=== PATIENT | male | born 1960 | race Caucasian/White ===

== ENCOUNTER 2024-09-05 10:17 | Day surgery (SDC) | payer OTHER ==
[2024-09-05] MEDS ORDERED: CIPROFLOXACIN 400mg IV 400 MG/200 ML BAG IV ONE (10:47)
[2024-09-05] MEDS ORDERED: NA CHLORIDE 0.9% 1,000 ML ONE (10:47)
--- NOTE | 2024-09-05 10:58 | RAD REPORT ---
EXAM: Chest Pa And Lat (2 Views) HISTORY: PREPROCEDURE SCREENING COMPARISON: 09/18/2016 FINDINGS: LUNGS/PLEURA: The lungs are clear. No pleural effusions or pneumothorax. No pulmonary edema. MEDIASTINUM: The mediastinal silhouette is within normal limits. CARDIAC: Cardiomegaly. UPPER ABDOMEN: No significant abnormality. BONES: No acute fracture. Sternotomy. LINES/TUBES/OTHER: N/A IMPRESSION: No evidence of acute cardiopulmonary disease.
[2024-09-05 11:14] LABS: Absolute Eosinophils 0.1 K/uL (0-0.5); Absolute Lymphocytes (CBC) 0.6 K/uL (0.7-4.9); Absolute Monocytes 0.6 K/uL (0.1-1.3); Absolute Neutrophil 5.8 K/uL (1.8-8.0); Basophils % 0.6 % (0-1.3); Eosinophils % 1.5 % (0-4.4); Hematocrit 37.4 % (39.6-49.0); Hemoglobin 12.5 g/dL (13.6-17.9); Lymphocytes % 8.1 % (15.3-44.8); MCH 31.2 pg (27.0-35.0); MCHC 33.3 g/dL (32.0-36.0); MCV 93.5 fL (80-100); MPV 7.7 fL (7.6-11.3); Monocytes % 8.5 % (3.3-12.3); Neutrophils % 81.3 % (41.7-73.7); Platelets 211 thou/uL (152-406)
[2024-09-05] MEDS ORDERED: LIDOCAINE 1% MPF 5 ML VIAL ONE ×2 (11:22→12:16)
[2024-09-05] MEDS ORDERED: FENTANYL CITR 100 MCG/2 ML ONE (11:22)
[2024-09-05] MEDS ORDERED: MIDAZOLAM HCL 2 MG/2 ML INJ ONE (11:23)
[2024-09-05] MEDS ORDERED: dexAMETHasone 4 MG/ML VIAL ONE (11:23)
[2024-09-05] MEDS ORDERED: EPINEPHRINE 1 MG/ML VIAL ONE (11:23)
[2024-09-05 11:24] LABS: Anion Gap 9.1 mEq/L (5.0-15.0); Potassium 4.1 mEq/L (3.5-5.1)
[2024-09-05] MEDS ORDERED: ROPLVACAINE HCL 20 ML ONE (11:24)
[2024-09-05] MEDS ORDERED: propofoL 200 MG/20 ML VIAL IV ONE (12:16)
[2024-09-05] MEDS ORDERED: EPHEDRINE SULF 50 MG/ML VIAL ONE (12:46)
--- NOTE | 2024-09-05 13:03 | P.BOP ---
Preoperative diagnosis: infected gangrene left 5th toe Postoperative diagnosis: same Primary procedure: Transmetatarsal amputation of left 5th toe Estimated blood loss: <1cc Specimen: toe Findings: as above Anesthesia: General Complications: None Transferred to: Recovery Room Condition: Good
[2024-09-05] MEDS: MORPHINE 4 MG/ML SYR ONE (13:26)
[2024-09-05] MEDS: HYDROCODONE/APAP 7.5/325 MG TAB ONE (14:17)
[2024-09-05 15:24] VITALS: BP 164/63; TEMP 97; O2SAT 97
--- NOTE | 2024-09-05 23:55 | OP ---
Date of Procedure: 09/05/2024 Surgeon: Heriberto Machado MD Preoperative Diagnosis: Infected gangrenous left fifth toe. Postoperative Diagnosis: Infected gangrenous left fifth toe. Procedure: Transmetatarsal amputation of the left fifth toe. Estimated Blood Loss: Less than 1 cc. Specimens: Toe. Findings: Gangrene toe with fluid. Anesthesia: General plus local. Packing: Iodoform quarter of an inch. Indications: This is a case of a male, who comes to us with gangrene in the left fifth toe. Cardiol tomas finally cleared him for the surgical intervention and it was explained to him as amputation of th e left fifth toe, probably transmetatarsal of that region only with benefits, alternatives, and risks including, but not limited to infection, bleeding, damage to adjacent structures, anesthesia complic ation, nonhealing wound, DC, and even . He also understands this may not relieve his symptoms. He might need more than one surgical intervention. He also understands its importance and imperativ e he lose some weight. He follows his doctor's recommendation, following with his vascular doctors f or evaluation of revascularization if needed. He signed the consent. Procedure In Detail: The area of concern was marked by me and the patient was in the holding room. The patient was brought to the operating room and placed in supine position. Anesthesia was induced without complication. Left foot was prepped and draped in sterile fashion. The patient has block of that region. This was done by anesthesia. An incision was made in the left fifth toe area. The ar ea was gangrenous. We were able to localize the area on the fifth metatarsal region that it looks vi able, so we transected through that region removing also the metatarsal head with it. The bone was j ust falling apart, so we decided to irrigate the area at the end of it and leave the area partially o pen. We approximated partially and then packed the rest with iodoform quarter of an inch. Hemostasi s was obtained. The patient tolerated the procedure well. The patient was sent to recovery in stabl e condition. RADHA/MODL Voice ID: [id number] Report ID: [id number]
--- NOTE | 2024-09-05 23:55 | DS ---
Date of Discharge: 09/05/2024 Diagnosis: Infected gangrenous left fifth toe. Procedure: Transmetatarsal amputation of left fifth toe. Disposition: Home. Activity: As tolerated. No heavy lifting. Discharge Instructions: [facility] this Thursday at 9:30 in the morning. Keep dressings intact until seen in the next 48 hours. Condition: Stable. RADHA/SUE Voice ID: [id number] Report ID: [id number]
--- NOTE | 2024-09-06 11:58 | EKG ---
Test Date: 2024-09-05 Test Time: 12:43:09 [employer] Selector: MEASUREMENT RESULTS: Intervals: Rate: 78 NE: 238 QRSD: 100 QT: 402 QTc: 458 [place]: P: 107 NE: 238 QRS: 73 T: 226 INTERPRETIVE STATEMENTS: Sinus rhythm with 1st degree AV block Possible Inferior infarct, age undetermined Possible Anterior infarct, age undetermined ST & T wave abnormality, consider lateral ischemia Abnormal ECG Compared to ECG 09/19/2016 07:15:46 First degree AV block now present Myocardial infarct finding still present ST (T wave) deviation still present Possible ischemia still present Electronically Signed On 09-06-24 11:56:25 HEALTHCARE APPLICATIONS ANALYST by Varghese Yan
== END 2024-09-05 15:05 | disposition home or self-care (01) ==
LOC: OR 10:17
PROVIDERS: ATTEND Surgery
PROC: 0Y6N0ZF Detachment at Left Foot, Partial 5th Ray, Open Approach (ICD-10-PCS; principal; 2024-09-05 14:15)
DX: E11.621 Type 2 diabetes mellitus with foot ulcer (principal); I96 Gangrene, not elsewhere classified
CPT/HCPCS: 28810; 85025; 80048; 36415; 88305; 88311; 71046; J2704; J1100; J2003 ×2; J2250; J3010; J0171; J0744; J7030; 93005

== ENCOUNTER 2024-09-07 08:08 | Inpatient (IN) | payer OTHER ==
[2024-09-07] MEDS ORDERED: LEVALBUTEROL 1.25 MG/3 ML NEB ONE (08:24)
[2024-09-07 08:39] LABS: Absolute Basophils 0.1 K/uL (0-0.5); Absolute Eosinophils 0.2 K/uL (0-0.5); Absolute Lymphocytes (CBC) 1.4 K/uL (0.7-4.9); Absolute Monocytes 0.8 K/uL (0.1-1.3); Absolute Neutrophil 7.8 K/uL (1.8-8.0); Basophils % 0.6 % (0-1.3); Eosinophils % 2.3 % (0-4.4); Hematocrit 37.9 % (39.6-49.0); Hemoglobin 12.9 g/dL (13.6-17.9); Lymphocytes % 13.6 % (15.3-44.8); MCH 31.7 pg (27.0-35.0); MCV 93.3 fL (80-100); MPV 7.7 fL (7.6-11.3); Monocytes % 7.4 % (3.3-12.3); Neutrophils % 76.1 % (41.7-73.7); Platelets 241 thou/uL (152-406); RBC Red Blood Cell Count 4.07 M/uL (4.33-5.43); Red Cell Distribution Width 16.4 % (12.1-15.2)
[2024-09-07 08:48] LABS: PT Prothrombin Time 10.8 SECONDS (9.4-12.5); PTT, Activated Partial Thromb 29.2 SECONDS (24.3-36.9); Protime INR 0.96
[2024-09-07 09:00] LABS: Albumin 3.6 g/dL (3.4-5.0); Albumin/Globulin Ratio 0.9 (1.1-1.8); Bilirubin Direct 0.3 mg/dL (0-0.2); Bilirubin Indirect, Calculated 0.7 mg/dL (0.2-0.8); Globulin 4.2 g/dL (2.3-3.5); Magnesium 1.7 mg/dL (1.6-2.4); Protein, Total 7.8 g/dL (6.4-8.2)
[2024-09-07 09:01] LABS: Troponin High Sensitivity 445.8 pg/mL (<58.9)
--- NOTE | 2024-09-07 09:31 | RAD REPORT ---
EXAMINATION: ONE VIEW CHEST XR CLINICAL INDICATION: DYSPNEA TECHNIQUE: Frontal chest projection is submitted. Examination is limited by patient positioning and t echnique. COMPARISON: 09/05/2024 FINDINGS: Mild to moderate pulmonary edema. The heart is moderately enlarged. No displaced fractures identified . Sternotomy wires present. IMPRESSION: [id number] CHF versus volume overload pattern.
--- NOTE | 2024-09-07 09:42 | ER ---
Nurse's Notes [facility] Name: Matthew Leyva Age: 64 yrs Sex: Male : 1960 Arrival Date: 09/07/2024 Time: 08:08 Bed 5 Private MD: Diagnosis: Unspecified combined systolic (congestive) and diastolic (congestive) heart failure;Acute pulmonary edema;Dyspnea, unspecified Presentation: 09/07 08:15 Chief complaint: Patient states: was at wound healing and became SOB and dizzy , feels iw sleepy, had amputation of pinky toe on Thursday. Coronavirus screen: Client presents with at least one sign or symptom that may indicate coronavirus-19. Ebola Screen: No symptoms or risks identified at this time. Initial Sepsis Screen: Does the patient meet any 2 criteria? No. Patient's initial sepsis screen is negative. Does the patient have a suspected source of infection? No. Patient's initial sepsis screen is negative. Risk Assessment: Do you want to hurt yourself or someone else? Patient reports no desire to harm self or others. Onset of symptoms was September 07, 2024. 08:15 Method Of Arrival: Ambulatory iw 08:15 Acuity: GIANLUCA 3 iw Triage Assessment: 08:33 Respiratory: Onset: The symptoms/episode began/occurred this morning, the patient has ap3 moderate shortness of breath. Historical: - Allergies: 08:33 NKA; ap3 - PMHx: 08:33 Diabetes - NIDDM; Hypertension; ap3 - Immunization history:: Flu vaccine status is unknown. - Infectious Disease History:: Denies. - Family history:: not pertinent. - Hospitalizations: : No recent hospitalization is reported. - Social history:: Smoking status: unknown. Screenin:27 Abuse screen: Denies threats or abuse. Denies injuries from another. Nutritional kc6 screening: No deficits noted. Tuberculosis screening: No symptoms or risk factors identified. 08:33 [facility] ED Fall Risk Assessment (Adult) Altered Elimination. ap3 13:30 [facility] ED Fall Risk Assessment (Adult) History of falling in the last 3 months, tm6 including since admission No falls in past 3 months (0 pts) Confusion or Disorientation No (0 pts) Intoxicated or Sedated No (0 pts) Impaired Gait No (0 pts) Mobility Assist Device Used No (0 pt) Altered Elimination No (0 pt) Score/Fall Risk Level 0 - 2 = Low Risk Oriented to surroundings, Maintained a safe environment, Educated pt \T\ family on fall prevention, incl call for assistance when getting out of bed. Assessment: 08:31 General: Appears in no apparent distress. Behavior is calm, cooperative, appropriate ap3 for age, Reports fatigue for. Pain: Denies pain. Neuro: Reports dizziness. Cardiovascular: Patient's skin is warm and dry. Cardiovascular: Rhythm is regular. Respiratory: Reports shortness of breath Airway is patent Respiratory effort is even, unlabored. Derm: dressing on left foot from recent amputation. 13:30 Respiratory: tm6 Vital Signs: 08:15 BP 162 / 70; Resp 18 S; iw 08:25 Pulse Ox 88% on R/A; ap3 08:27 BP 166 / 76; Pulse 74; Resp 16 S; Pulse Ox 97% on 2 lpm NC; kc6 09:18 BP 154 / 67; Pulse 73; Pulse Ox 96% on R/A; ap3 12:16 Weight 87.54 kg; tm6 12:32 BP 142 / 60; Pulse 72; Resp 18; Pulse Ox 96% on 2 lpm NC; MAP 80 mmHg; Pain 0/10; tm6 12:32 Pain Scale: Adult tm6 ED Course: 08:09 Patient arrived in ED. im 08:10 Steven Luu MD is Attending Physician. rn 08:18 Triage completed. iw 08:22 Joanne Pelayo, SHARIF is Primary Nurse. ap3 08:22 EKG done, by ED staff, reviewed by Steven Luu MD. Oxygen administration via nasal ap3 cannula \T\ 2L/min. 08:26 Inserted saline lock: 22 gauge in right antecubital area, using aseptic technique. kc6 Blood collected. Flushed with 10 mL NS. 08:27 Patient has correct armband on for positive identification. Bed in low position. Call kc6 light in reach. Side rails up X2. aniline press worker on. Pulse ox on. NIBP on. Door closed. Noise minimized. Lights dimmed. Pillow given. 08:33 Arm band placed on right wrist. ap3 08:46 XRAY CXR (1 view) In Process Unspecified. EDMS 09:41 Haris Luu MD is Hospitalizing Provider. rn 10:53 Chest For PE Angio CT In Process Unspecified. EDMS 13:30 No provider procedures requiring assistance completed. Patient admitted, IV remains in tm6 place. 13:31 Provided Education on: need for admit. tm6 Administered Medications: 08:31 Drug: Levalbuterol Inhalation 1.25 mg Inhalation once Route: Inhalation; ap3 13:32 Follow up: Response: No adverse reaction tm6 10:10 Drug: Furosemide IVP 40 mg IVP once; give over 2 minutes Route: IVP; Site: right ap3 antecubital; 13:32 Follow up: Response: No adverse reaction tm6 10:10 Drug: HYDROcodone-acetaminophen PO 10 mg-325 mg 1 tabs PO once Route: PO; ap3 13:31 Follow up: Response: No adverse reaction tm6 12:24 Drug: Enoxaparin Sub-Q 1 mg/kg Sub-Q once Route: Sub-Q; Site: left lower abdomen; tm6 13:31 Follow up: Response: No adverse reaction tm6 Medication: 08:33 VIS not applicable for this client. ap3 Output: 12:10 Urine: 700ml (Voided); Total: 700ml. iw Outcome: 09:41 Decision to Hospitalize by Provider. rn 13:31 Admitted to Med/surg accompanied by tech, via wheelchair, with oxygen, with chart, tm6 13:31 Condition: stable 13:31 Instructed on the need for admit, 13:31 Patient left the ED. tm6 Signatures: Dispatcher [employer] Bambi Geiger RN RN iw Steven Luu MD MD rn Prokisch, Amanda, RN RN ap3 Sondra Yen RN RN 6 Tabitha Stewart Tawney, RN RN tm6
--- NOTE | 2024-09-07 09:42 | EDPHYS ---
Physician Documentation [facility] Name: Matthew Leyva Age: 64 yrs Sex: Male : 1960 Arrival Date: 09/07/2024 Time: 08:08 Bed 5 Private MD: ED Physician Steven Luu HPI: 09/07 09:12 This 64 yrs old Male presents to ER via Ambulatory with complaints of Shortness Of rn Breath, Dizziness. 09:12 The patient has shortness of breath at rest, with light activity. Onset: The rn symptoms/episode began/occurred at an unknown time. Associated signs and symptoms: Pertinent positives: non-productive cough, Pertinent negatives: chest pain, fever, hemoptysis. Severity of symptoms: At their worst the symptoms were moderate in the emergency department the symptoms are unchanged. The patient has not experienced similar symptoms in the past. Patient reports shortness of breath for the last couple days, orthopnea for the last week, sent here from wound care for evaluation. Patient denies any chest pain. No fever or chills. Has a productive cough but negative for hemoptysis. No history of DVT or PE. No trauma.. Historical: - Allergies: 08:33 NKA; ap3 - PMHx: 08:33 Diabetes - NIDDM; Hypertension; ap3 - Immunization history:: Flu vaccine status is unknown. - Infectious Disease History:: Denies. - Family history:: not pertinent. - Hospitalizations: : No recent hospitalization is reported. - Social history:: Smoking status: unknown. ROS: 09:12 Constitutional: Negative for fever, chills, and weight loss, Cardiovascular: Negative rn for chest pain, palpitations, and edema, Respiratory: Positive for cough and shortness of breath Abdomen/GI: Negative for abdominal pain, nausea, vomiting, diarrhea, and constipation, MS/Extremity: Negative for injury and deformity, Skin: Negative for injury, rash, and discoloration, Neuro: Positive for generalized weakness and dizziness Exam: 09:12 Constitutional: This is a well developed, well nourished patient who is awake, alert, rn and in no acute distress. Cardiovascular: Regular rate and rhythm. No pulse deficits. Respiratory: Moderate tachypnea, diminished at bases, occasional wheezing noted Abdomen/GI: Soft, non-tender MS/ Extremity: Pulses equal, no cyanosis. Neurovascular intact. Full, normal range of motion. Equal circumference. Neuro: Awake and alert, GCS 15 11:32 ECG was reviewed by the Attending Physician. rn Vital Signs: 08:15 BP 162 / 70; Resp 18 S; iw 08:25 Pulse Ox 88% on R/A; ap3 08:27 BP 166 / 76; Pulse 74; Resp 16 S; Pulse Ox 97% on 2 lpm NC; kc6 09:18 BP 154 / 67; Pulse 73; Pulse Ox 96% on R/A; ap3 12:16 Weight 87.54 kg; tm6 12:32 BP 142 / 60; Pulse 72; Resp 18; Pulse Ox 96% on 2 lpm NC; MAP 80 mmHg; Pain 0/10; tm6 12:32 Pain Scale: Adult tm6 MDM: 08:10 Medical Screening Exam initiated rn 09:40 Differential diagnosis: CHF exacerbation, Chronic Obstructive Pulmonary Disease rn Myocardial Infarction pneumonia, Pneumothorax pulmonary edema. Data reviewed: vital signs, nurses notes, lab test result(s), EKG, radiologic studies, plain films, and as a result, I will admit patient. Consideration of Admission/Observation Patient was admitted/placed on observation. Escalation of care including admission/observation considered. Counseling: I had a detailed discussion with the patient and/or guardian regarding the historical points, exam findings, and any diagnostic results supporting the discharge/admit diagnosis, lab results, radiology results, the need for further work-up and treatment in the hospital. Response to treatment: the patient's symptoms have markedly improved after treatment, and as a result, I will admit patient. Special discussion: I discussed with the patient/guardian in detail that at this point there is no indication for admission to the hospital. It is understood, however, that if the symptoms persist or worsen the patient needs to return immediately for re-evaluation. 09/07 08:18 Order name: BMP; Complete Time: : rn 09/07 08:18 Order name: CBC with Diff; Complete Time: : rn 09/07 08:18 Order name: Hepatic Function; Complete Time: : rn 09/07 08:18 Order name: Magnesium; Complete Time: : rn 09/07 08:18 Order name: NT PRO-BNP; Complete Time: : rn 09/07 08:18 Order name: PT-INR; Complete Time: : rn 09/07 08:18 Order name: Ptt, Activated; Complete Time: 09: rn 09/07 08:18 Order name: Troponin HS; Complete Time: 09: rn 09/07 11:31 Order name: Troponin High Sensitivity EDMS 09/07 11:31 Order name: Troponin High Sensitivity EDMS 09/07 11:31 Order name: Troponin High Sensitivity EDMS 09/07 08:18 Order name: XRAY CXR (1 view); Complete Time: 09:35 rn 09/07 10:27 Order name: Chest For PE Angio CT; Complete Time: 11:26 la1 09/07 11:31 Order name: Echo with Doppler EDMS 09/07 08:18 Order name: Cardiac monitoring; Complete Time: 08: rn 09/07 08:18 Order name: EKG - Nurse/Tech; Complete Time: 08: rn 09/07 08:18 Order name: IV Saline Lock; Complete Time: 08: rn 09/07 08:18 Order name: Labs collected and sent; Complete Time: : rn 09/07 08:18 Order name: O2 Per Protocol; Complete Time: 08: rn 09/07 08:18 Order name: O2 Sat Monitoring; Complete Time: 08:23 rn EC:32 Rate is 78 beats/min. Rhythm is regular. QRS [place] is Normal. AL interval is normal. QRS rn interval is normal. QT interval is normal. No Q waves. T waves are Inverted in leads I, II, III, aVF, V5, V6. No ST changes noted. Clinical impression: NSR w/ Non-specific ST/T Changes. Interpreted by me. Reviewed by me. Administered Medications: 08:31 Drug: Levalbuterol Inhalation 1.25 mg Inhalation once Route: Inhalation; ap3 13:32 Follow up: Response: No adverse reaction tm6 10:10 Drug: Furosemide IVP 40 mg IVP once; give over 2 minutes Route: IVP; Site: right ap3 antecubital; 13:32 Follow up: Response: No adverse reaction tm6 10:10 Drug: HYDROcodone-acetaminophen PO 10 mg-325 mg 1 tabs PO once Route: PO; ap3 13:31 Follow up: Response: No adverse reaction tm6 12:24 Drug: Enoxaparin Sub-Q 1 mg/kg Sub-Q once Route: Sub-Q; Site: left lower abdomen; tm6 13:31 Follow up: Response: No adverse reaction tm6 Disposition Summary: 09/07/24 09:41 Hospitalization Ordered Notes: Hospitalization Status: Inpatient Admission rn Provider: Haris Luu rn Location: Telemetry/MedSurg (Inpatient) rn Condition: Stable rn Problem: new rn Symptoms: have improved rn Bed/Room Type: Standard rn Room Assignment: 220(09/07/24 11:37) ss Diagnosis - Unspecified combined systolic (congestive) and diastolic (congestive) heart failure rn - Acute pulmonary edema rn - Dyspnea, unspecified rn Forms: - Medication Reconciliation Form rn - SBAR form rn - Leadership Thank You Letter rn Signatures: Dispatcher [employer] EDMS Steven Luu MD MD rn Blanchard, Shelby, RN RN ss Aden Magaña, DETASSELING CREW SUPERVISOR-C DETASSELING CREW SUPERVISOR-Cla1 Joanne Pelayo RN RN ap3 Deshaun Abernathy RN RN tm6 Corrections: (The following items were deleted from the chart) 08:19 08:19 BASIC METABOLIC PANEL+C.LAB.BRZ ordered. EDMS EDMS 08:19 08:19 CBC+H.LAB.BRZ ordered. EDMS EDMS 08:19 08:19 HEPATIC FUNCTION+C.LAB.BRZ ordered. EDMS EDMS 08:19 08:19 MAGNESIUM+C.LAB.BRZ ordered. EDMS EDMS 08:19 08:19 PROBNP+C.LAB.BRZ ordered. EDMS EDMS 08:19 08:19 PROTIME (+INR)+COAG.LAB.BRZ ordered. EDMS EDMS 08:19 08:19 PTT, ACTIVATED+COAG.LAB.BRZ ordered. EDMS EDMS 08:19 08:19 Troponin High Sensitivity+C.LAB.BRZ ordered. EDMS EDMS 08:19 08:19 Chest Single View+RAD.RAD.BRZ ordered. EDMS EDMS 11:37 09:41 rn ss
[2024-09-07] MEDS ORDERED: HYDROCODONE/APAP 10/325 TAB ONE (09:55)
[2024-09-07] MEDS ORDERED: FUROSEMIDE 40 MG/4 ML VIAL ONE (09:56)
--- NOTE | 2024-09-07 11:17 | RAD REPORT ---
EXAMINATION: CTA CHEST PE CLINICAL INDICATION: GONZALEZ, Recent surgery, hypoxia, elev trop TECHNIQUE: This examination was performed according to an angiographic protocol with 3D post-processi ng. This involves 3D reconstructions, MIPs, volume rendered images and/or shaded surface rendering. One or more of the following dose reduction techniques were used: Automated exposure control, adjustm ent of the mA and/or kV according to patient size, and/or iterative reconstruction. Unless otherwise specified, incidental findings do not require dedicated imaging follow-up. COMPARISON: No prior exam. FINDINGS: PULMONARY ARTERIES: Normal caliber. No evidence of pulmonary emboli to the subsegmental level. THORACIC AORTA: Normal caliber and configuration. LUNGS: Mild interstitial pulmonary edema is present. PLEURA: Trace pleural effusions bilaterally. MEDIASTINUM AND LYMPH NODES: Mildly prominent mediastinal lymph nodes seen, largest in the AP window region measuring up to 14 mm, possibly reactive. OSSEOUS STRUCTURES AND CHEST WALL: Intact. UPPER ABDOMEN: No significant abnormalities. IMPRESSION: No evidence of pulmonary emboli to the subsegmental level. Mild CHF or volume overload.
--- NOTE | 2024-09-07 11:37 | P.HP ---
Certification for Inpatient Patient admitted to: Inpatient With expected LOS: >2 Midnights Patient will require the following post-hospital care: None Practitioner: I am a practitioner with admitting privileges, knowledge of patient current condition, hospital course, and medical plan of care. Services: Services provided to patient in accordance with Admission requirements found in Title 42 Section 412.3 of the Code of Federal Regulations Patient History Date of Service: 09/07/24 Reason for admission: NSTEMI, new CHF History of Present Illness: 64-year-old male with history of PAD, CAD with previous CABG four-vessel CABG in 2005, fse-uzzsgck-ljyywyuzf diabetes, hypertension presents emerged department with chief complaint of dyspnea on exertion, lightheadedness. He had a recent amputation of his left pinky toe on Thursday the , had come to the hospital for wound healing center evaluation but became short of breath while walking in and came to the emergency department. He reports that prior to his toe amputation he was seen by his sales and marketing professional and underwent a stress test and echocardiogram last week with his sales and marketing professional and [place]. He was told that he was "high risk for surgery" but he is unsure of the results from the echo and stress test. He had a four-vessel CABG in 2005 and his most recent heart cath was probably around 3 years ago with no stents placed. He denies any chest pain. Labs were significant for initial high sensitive troponin of 445.8 BNP of 2703 sodium 125 chloride 93 CTA of the chest was performed which showed no evidence of PE, mild CHF or volume overload pattern. He is requiring nasal cannula oxygen at this time, does not wear oxygen at home typically. Allergies No Known Allergies Allergy (Verified 09/05/24 12:36) Home Medications: Amlodipine [Norvasc*] 10 mg PO DAILY #30 tab 10/10/15 Hydralazine [Apresoline*] 50 mg PO TID #90 tab 10/12/15 Topiramate [Topamax*] 25 mg PO BID #60 tab 10/12/15 Metformin HCl [Metformin HCl ER] 750 mg PO DAILY 09/18/16 Metoprolol Tartrate [Lopressor*] 200 mg PO BID 09/18/16 Simvastatin 40 mg PO DAILY 09/18/16 Valsartan [Diovan] 320 mg PO DAILY 09/18/16 Doxazosin [Cardura*] 1 mg PO BEDTIME #30 tab 09/19/16 Topiramate [Topamax] 25 mg PO BID #28 tab 09/19/16 - Past Medical/Surgical History Diabetic: Yes -: HTN -: Diabetes -: appendectomy -: quadruple bypass -: stent left leg -: 3 vessel CABG -: Left pinky toe amputation Psychosocial/ Personal History: Lives at home alone, recently - Family History Mother -: Stroke Notes: of coronary artery disease - Social History Smoking Status: Current every day smoker Alcohol use: Yes CD- Drugs: No Caffeine use: Yes Place of Residence: Home Review of Systems 10-point ROS is otherwise unremarkable Respiratory: Shortness of Breath, SOB with Excertion Physical Examination - Physical Exam General: Alert, In no apparent distress, Oriented x3 HEENT: Atraumatic, PERRLA, Mucous membr. moist/pink, EOMI Neck: Supple, 2+ carotid pulse no bruit, No LAD Respiratory: Normal air movement, Diminished Cardiovascular: Regular rate/rhythm, Normal S1 S2 Gastrointestinal: Normal bowel sounds, No tenderness Musculoskeletal: No tenderness Integumentary: No rashes Neurological: Normal speech, Normal strength at 5/5 x4 extr, Normal tone - Studies Laboratory Data (last 24 hrs) 09/07/24 09/07/24 09/07/24 08:28 08:28 08:28 WBC 10.30 Hgb 12.9 L Hct 37.9 L Plt Count 241 PT 10.8 INR 0.96 APTT 29.2 Sodium 125 L Potassium 4.0 BUN 9 Creatinine 0.63 L Glucose 131 H Magnesium 1.7 Total Bilirubin 1.0 AST 19 ALT 17 Alkaline Phosphatase 82 Assessment and Plan - Plan Assessment: NSTEMI Suspected new onset CHFunknown EF Hyponatremia History of CAD with previous four-vessel [id number] PAD Diabetes mellitus type [id number] Hypertension Plan: NSTEMI Suspected new onset CHFunknown EF Hyponatremia History of CAD with previous four-vessel [id number] Reports he had a stress test and echo last week with his sales and marketing professional in [place] Dr. Rajput-was told he was high risk for surgery CTA of the chest negative for PE, shows suspected normal overload/CHF Given therapeutic Lovenox Continue diuresis with IV Lasix Cardiology consulted, will repeat echocardiogram Last catheter on 3 years ago with no intervention Denies chest pain Wean O2 as tolerated PAD Planning for intervention to PAD in his legs after the new year outpatient Diabetes mellitus type 1fje-bgnlztq-uprwidchf ACHS Accu-Chek, sliding scale insulin Hypertension Continue home medication DVT PPX: Therapeutic Lovenox Code status: Full Discharge Plan: Home Plan to discharge in: 48 Hours - Advance Directives Does patient have a Living Will: No Does patient have a Durable POA for Healthcare: No - Code Status/Comfort Care Code Status Assessed: Yes (Full code) Critical Care: No Time Spent Managing Pts Care (In Minutes): 63
[2024-09-07] MEDS ORDERED: ENOXAPARIN 80 MG/0.8 ML SQ ONE (12:21)
[2024-09-07 14:30] VITALS: BMI 29.4
[2024-09-07] MEDS ORDERED: HYDROCODONE/APAP 10/325 TAB PO PRN (14:47)
[2024-09-07 15:01] VITALS: O2SAT 97
[2024-09-07] MEDS: HYDROCODONE/APAP 10/325 TAB PO PRN (15:52)
[2024-09-07] MEDS: NICOTINE 21 MG/PAT TD SCH (15:53)
[2024-09-07] MEDS: FUROSEMIDE 40 MG/4 ML VIAL IV SCH (15:53)
--- NOTE | 2024-09-07 16:27 | P.CNS ---
Date of Consult: 09/07/24 Chief Complaint: NSTEMI, new CHF History of Present Illness: Patient with PMH of complex CAD/PAD s/p CABG, presented with worsening SOB, denies having chest pain, no palpitations, no syncope. Allergies No Known Allergies Allergy (Verified 09/05/24 12:36) Home medications list reviewed: Yes Home Medications: Metformin HCl [Metformin HCl ER] 1,000 mg PO BID 09/18/16 Metoprolol Tartrate [Lopressor*] 200 mg PO BID 09/18/16 Simvastatin 40 mg PO DAILY 09/18/16 Amlodipine [Norvasc*] 5 mg PO DAILY 09/07/24 Bupropion HCl [Wellbutrin Sr] 150 mg PO DAILY 09/07/24 Clopidogrel Bisulfate [Clopidogrel] 75 mg PO DAILY 09/07/24 Gabapentin [Neurontin] 100 mg PO DAILY 09/07/24 Hydralazine [Apresoline*] 75 mg PO BID 09/07/24 Hydrocodone Bit/Acetaminophen [Hydrocodon-Acetaminophn 10-325] 10 mg PO Q4HR PRN 09/07/24 lisinopriL [Lisinopril] 20 mg PO DAILY 09/07/24 - Past Medical/Surgical History Diabetic: Yes -: HTN -: Diabetes -: appendectomy -: quadruple bypass -: stent left leg -: 3 vessel CABG -: Left pinky toe amputation Psychosocial/ Personal History: Lives at home alone, recently - Family History Mother Medical History: Stroke Notes: of coronary artery disease - Social History Smoking Status: Unknown if ever smoked Alcohol use: Yes CD- Drugs: No Caffeine use: No Place of Residence: Home Review of Systems 10-point ROS is otherwise unremarkable Physical Examination Temp Pulse Resp BP Pulse Ox 98.7 F 77 18 178/76 H 91 09/07/24 16:00 09/07/24 16:00 09/07/24 16:00 09/07/24 16:00 09/07/24 16:00 General: Alert, In no apparent distress HEENT: Atraumatic, PERRLA, Mucous membr. moist/pink, EOMI, Sclerae nonicteric Neck: Supple, 2+ carotid pulse no bruit, No LAD, Without JVD or thyroid abnormality Respiratory: Clear to auscultation bilaterally, Normal air movement Cardiovascular: Regular rate/rhythm, Normal S1 S2 Gastrointestinal: Normal bowel sounds, No tenderness Musculoskeletal: No tenderness Integumentary: No rashes Neurological: Normal gait, Normal speech, Normal tone, Normal affect Lymphatics: No axilla or inguinal lymphadenopathy Laboratory Data (last 24 hrs) 09/07/24 09/07/24 09/07/24 08:28 08:28 08:28 WBC 10.30 Hgb 12.9 L Hct 37.9 L Plt Count 241 PT 10.8 INR 0.96 APTT 29.2 Sodium 125 L Potassium 4.0 BUN 9 Creatinine 0.63 L Glucose 131 H Magnesium 1.7 Total Bilirubin 1.0 AST 19 ALT 17 Alkaline Phosphatase 82 - Problems (1) NSTEMI (non-ST elevated myocardial infarction) Current Visit: Yes Status: Acute Plan: Patient with PMH of Complex CAD s/p CABG with only patent SOLOMON to LAD and calcified coronary artery disease else where, he follow up with boat ride operator, Dr. Rajput and no plan for intervention. denies chest pain. most likely type 2 NV from recent leg surgery continue ASA and Plavix continue ACS heparin for 48 hours. continue to trend cardiac enzymes. (2) Acute on chronic combined systolic and diastolic heart failure Current Visit: Yes Status: Acute Plan: agree with Lasix 40 mg IV BID Monitor input and output and electrolytes.
[2024-09-07] MEDS: ENOXAPARIN 100 MG/ML SYR SQ SCH (20:37)
[2024-09-07] MEDS: BUPROPRION HCL S.R. 150MG TAB PO SCH (21:00)
[2024-09-07] MEDS ORDERED: METOPROLOL XL 100 MG TAB PO SCH (21:00)
[2024-09-07] MEDS: HYDRALAZINE HCL 25 MG TABLET PO SCH (21:00)
[2024-09-07] MEDS ORDERED: ATORVASTATIN 40 MG TAB PO SCH (21:00)
[2024-09-07] MEDS ORDERED: HYDRALAZINE HCL 25 MG TABLET PO SCH (21:00)
[2024-09-07] MEDS: ROSUVASTATIN 10 MG TAB PO SCH (21:00)
[2024-09-08 00:50] VITALS: TEMP 97.7
[2024-09-08] MEDS ORDERED: METOPROLOL XL 100 MG TAB PO SCH (06:00)
[2024-09-08 06:21] VITALS: BP 166/70
[2024-09-08] MEDS: GABAPENTIN 100 MG CAP PO SCH (08:41)
[2024-09-08] MEDS: ASPIRIN EC 81 MG TAB PO SCH (08:41)
[2024-09-08] MEDS: lisinopriL 20 MG TAB PO SCH (08:42)
[2024-09-08] MEDS: CLOPIDOGREL 75 MG TABLET PO SCH (08:42)
[2024-09-08] MEDS: AMLODIPINE 5 MG TAB PO SCH (08:42)
--- NOTE | 2024-09-08 09:46 | P.PN ---
Subjective Date of Service: 09/08/24 Chief Complaint: NSTEMI, new CHF Subjective: No new changes, No C/O voiced, Tolerating diet, Ambulating, Improving Review of Systems 10-point ROS is otherwise unremarkable Physical Examination - Vital Signs Temperature: 97.7 F Blood Pressure: 166/70 Pulse: 67 Respirations: 18 Pulse Ox (%): 94 - Physical Exam General: Alert, In no apparent distress HEENT: Atraumatic, PERRLA, EOMI Neck: Supple, JVD not distended Respiratory: Clear to auscultation bilaterally, Normal air movement Cardiovascular: Regular rate/rhythm, Normal S1 S2 Gastrointestinal: Normal bowel sounds, No tenderness Musculoskeletal: No tenderness Integumentary: No rashes Neurological: Normal speech, Normal tone, Normal affect Lymphatics: No axilla or inguinal lymphadenopathy - Studies Medications List Reviewed: Yes Assessment And Plan - Current Problems (Diagnosis) (1) NSTEMI (non-ST elevated myocardial infarction) Current Visit: Yes Status: Acute Plan: Patient with PMH of Complex CAD s/p CABG with only patent SOLOMON to LAD and calcified coronary artery disease else where, he follow up with mill hand plate mill, Dr. Rajput and no plan for intervention. denies chest pain. most likely type 2 [place] from recent leg surgery continue ASA and Plavix. (2) Acute on chronic combined systolic and diastolic heart failure Current Visit: Yes Status: Acute Plan: switch lasix to 40 mg po daily continue lisinopril 20 mg daily switch lopressor to coreg 12.5 mg po BID on discharge. resume home dose hydralazine on discharge. Monitor input and output and electrolytes.
--- NOTE | 2024-09-08 11:28 | EKG ---
Test Date: 2024-09-07 Test Time: 08:20:10 Frozen Yogurt Maker: ALP MEASUREMENT RESULTS: Intervals: Rate: 78 [place]: 190 QRSD: 94 QT: 416 QTc: 474 [place]: P: 89 [place]: 190 QRS: 84 T: 231 INTERPRETIVE STATEMENTS: Normal sinus rhythm Inferior infarct, age undetermined Cannot rule out Anterior infarct, age undetermined ST & T wave abnormality, consider lateral ischemia Abnormal ECG Compared to ECG 09/05/2024 12:43:09 First degree AV block no longer present Myocardial infarct finding still present ST (T wave) deviation still present Possible ischemia still present Electronically Signed On 09-08-24 11:27:30 SOCKET PULLER by Varghese Yan
--- NOTE | 2024-09-08 11:53 | P.DS ---
Admission Date: 09/07/24 Discharge Date: 09/08/24 Disposition: ROUTINE DISCHARGE Discharge Condition: GOOD Reason for Admission: NSTEMI, new CHF Brief History of Present Illness: Diagnosis NSTEMI Acute on chronic combined systolic and diastolic heart failure Hyponatremia History of CAD with previous four-vessel [id number] PAD Diabetes mellitus type [id number] Hypertension HPI 09/07/24 Matthew Leyva is a 64-year-old male with history of PAD, CAD with previous CABG four-vessel CABG in 2005, [id number] diabetes, hypertension presents emerged department with chief complaint of dyspnea on exertion, lightheadedness. He had a recent amputation of his left pinky toe on Thursday the , had come to the hospital for wound healing center evaluation but became short of breath while walking in and came to the emergency department. He reports that prior to his toe amputation he was seen by his research and development scientist and underwent a stress test and echocardiogram last week with his research and development scientist and Gal Rajput. He was told that he was "high risk for surgery" but he is unsure of the results from the echo and stress test. He had a four-vessel CABG in 2005 and his most recent heart cath was probably around 3 years ago with no stents placed. He denies any chest pain. Labs were significant for initial high sensitive troponin of 445.8 BNP of 2703 sodium 125 chloride 93 CTA of the chest was performed which showed no evidence of PE, mild CHF or volume overload pattern. He is requiring nasal cannula oxygen at this time, does not wear oxygen at home typically. Hospital Course: [text] is a pleasant [text] with a past medical history significant for [text] who was admitted to the [facility] on [text] for [text]. [text] On [date], [text] was seen on morning rounds and deemed medically stable for discharge. [text] was discharged with instructions to schedule follow-up appointments with [text]. [text] was provided prescriptions for [text]. Physical Exam General: Alert, In no apparent distress, Oriented x3 HEENT: Atraumatic, PERRLA, Mucous membr. moist/pink, EOMI Neck: Supple, 2+ carotid pulse no bruit, No LAD Respiratory: Normal air movement, Diminished Cardiovascular: Regular rate/rhythm, Normal S1 S2 Gastrointestinal: Normal bowel sounds, No tenderness Musculoskeletal: No tenderness Integumentary: No rashes Neurological: Normal speech, Normal strength at 5/5 x4 extr, Normal tone Vital Signs/Physical Exam: Temp Pulse Resp BP Pulse Ox 97.7 F 67 18 166/70 H 94 09/08/24 09:46 09/08/24 09:46 09/08/24 09:46 09/08/24 09:46 09/08/24 09:46 Laboratory Data at Discharge: WBC 10.30 thou/uL (4.3-10.9) 09/07/24 08:28 Hgb 12.9 g/dL (13.6-17.9) L 09/07/24 08:28 Hct 37.9 % (39.6-49.0) L 09/07/24 08:28 Plt Count 241 thou/uL (152-406) 09/07/24 08:28 PT 10.8 SECONDS (9.4-12.5) 09/07/24 08:28 INR 0.96 09/07/24 08:28 APTT 29.2 SECONDS (24.3-36.9) 09/07/24 08:28 Sodium 125 mEq/L (136-145) L 09/07/24 08:28 Potassium 4.0 mEq/L (3.5-5.1) 09/07/24 08:28 BUN 9 mg/dL (7-18) 09/07/24 08:28 Creatinine 0.63 mg/dL (0.70-1.30) L 09/07/24 08:28 Glucose 131 mg/dL (74-106) H 09/07/24 08:28 Magnesium 1.7 mg/dL (1.6-2.4) 09/07/24 08:28 Total Bilirubin 1.0 mg/dL (0.2-1.0) 09/07/24 08:28 AST 19 U/L (15-37) 09/07/24 08:28 ALT 17 U/L (16-61) 09/07/24 08:28 Alkaline Phosphatase 82 U/L (45-117) 09/07/24 08:28 Home Medications: Metformin HCl [Metformin HCl ER] 1,000 mg PO BID 09/18/16 Simvastatin 40 mg PO DAILY 09/18/16 Amlodipine [Norvasc*] 5 mg PO DAILY 09/07/24 Bupropion HCl [Wellbutrin Sr] 150 mg PO DAILY 09/07/24 Clopidogrel Bisulfate [Clopidogrel] 75 mg PO DAILY 09/07/24 Gabapentin [Neurontin*] 100 mg PO DAILY 09/07/24 Hydralazine [Apresoline*] 75 mg PO BID 09/07/24 Hydrocodone Bit/Acetaminophen [Hydrocodon-Acetaminophn 10-325] 10 mg PO Q4HR PRN 09/07/24 lisinopriL [Lisinopril] 20 mg PO DAILY 09/07/24 Aspirin [Aspirin EC 81 MG] 81 mg PO DAILY 30 Days #30 tab 09/08/24 Carvedilol [Coreg] 12.5 mg PO BID 30 Days #60 tab 09/08/24 Clopidogrel Bisulfate [Plavix*] 75 mg PO DAILY 09/08/24 Clopidogrel Bisulfate [Plavix] 75 mg PO DAILY 30 Days #30 tab 09/08/24 Furosemide [Lasix] 40 mg PO DAILY 30 Days #30 tab 09/08/24 Potassium Oral Tab [Klor-Con 10 mEq Tab*] 20 meq PO DAILY 30 Days #30 tab 09/08/24 New Medications: Aspirin [Aspirin EC 81 MG] 81 mg PO DAILY 30 Days #30 tab Carvedilol [Coreg] 12.5 mg PO BID 30 Days #60 tab Potassium Oral Tab [Klor-Con 10 mEq Tab*] 20 meq PO DAILY 30 Days #30 tab Furosemide [Lasix] 40 mg PO DAILY 30 Days #30 tab Clopidogrel Bisulfate [Plavix] 75 mg PO DAILY 30 Days #30 tab Physician Discharge Instructions: 1. Please call and schedule a follow-up appointment with your PCP in 3-5 days - Please follow-up with your PCP for medication refills/adjustments 2. Please call and schedule a follow-up appointment with cardiology in one week -new medications started and will need to be reviewed with your research and development scientist for further management and adjustments 3. Continue heart healthy diet 4. activity restrictions, do not lift greater than 10 pounds 5. Return to the ED if symptoms worsen New medications Lasix 40 mg daily Coreg 12.5 mg twice daily- stop Lopressor Aspirin 81 mg daily Stop Lopressor Diet: AHA Activity: Ad fred Followup: GIL KIRKLAND [Primary Care Provider] -
== END 2024-09-08 12:35 | disposition home or self-care (01) | DRG 280 ==
LOC: ER 08:08 → ERHOLD 11:26 → 2ND 13:17
PROVIDERS: ADMIT Hospitalist; ATTEND Hospitalist
DX: I11.0 Hypertensive heart disease with heart failure (principal); I50.43 Acute on chronic combined systolic (congestive) and diastolic (congestive) heart failure; I21.A1 Myocardial infarction type 2; E87.1 Hypo-osmolality and hyponatremia; I50.9 Heart failure, unspecified; E11.51 Type 2 diabetes mellitus with diabetic peripheral angiopathy without gangrene; I25.10 Atherosclerotic heart disease of native coronary artery without angina pectoris; F17.200 Nicotine dependence, unspecified, uncomplicated; Z60.2 Problems related to living alone; Z95.1 Presence of aortocoronary bypass graft; Z63.4 Disappearance and death of family member; Z79.84 Long term (current) use of oral hypoglycemic drugs; Z90.49 Acquired absence of other specified parts of digestive tract; Z79.899 Other long term (current) drug therapy; Z89.422 Acquired absence of other left toe(s)
CPT/HCPCS: 36415; 71045; 71275; 80048; 80076; 82947; 83735; 83880; 84484; 85025; 85610; 85730; 93005; 96372; 96374; 99285; J1650; J1940; J7614; Q9967

== ENCOUNTER 2024-11-11 17:38 | Inpatient (IN) | payer MEDICARE ==
[2024-11-11 18:04] LABS: Absolute Basophils 0.1 K/uL (0-0.5); Absolute Eosinophils 0.2 K/uL (0-0.5); Absolute Lymphocytes (CBC) 0.9 K/uL (0.7-4.9); Absolute Monocytes 0.9 K/uL (0.1-1.3); Absolute Neutrophil 8.8 K/uL (1.8-8.0); Basophils % 0.6 % (0-1.3); Eosinophils % 1.5 % (0-4.4); Hematocrit 42.2 % (39.6-49.0); Hemoglobin 14.2 g/dL (13.6-17.9); Lymphocytes % 8.4 % (15.3-44.8); MCHC 33.6 g/dL (32.0-36.0); MCV 92.3 fL (80-100); MPV 8.2 fL (7.6-11.3); Monocytes % 8.7 % (3.3-12.3); Neutrophils % 80.8 % (41.7-73.7); Platelets 256 thou/uL (152-406); RBC Red Blood Cell Count 4.58 M/uL (4.33-5.43); Red Cell Distribution Width 15.6 % (12.1-15.2)
[2024-11-11 18:10] LABS: PT Prothrombin Time 10.9 SECONDS (10.0-13.0); PTT, Activated Partial Thromb 28.9 SECONDS (24.3-36.9); Protime INR 0.95
[2024-11-11] MEDS ORDERED: LEVALBUTEROL 1.25 MG/3 ML NEB ONE (18:12)
[2024-11-11] MEDS ORDERED: METHYLPREDNISOLONE 125 MG INJ ONE (18:12)
[2024-11-11] MEDS ORDERED: LORazepam 2 MG/ML VIAL ONE (18:21)
[2024-11-11 18:22] LABS: Albumin 3.5 g/dL (3.4-5.0); Albumin/Globulin Ratio 0.7 (1.1-1.8); Anion Gap 11.4 mEq/L (5.0-15.0); Bilirubin Total 0.8 mg/dL (0.2-1.0); Globulin 4.9 g/dL (2.3-3.5); Potassium 4.4 mEq/L (3.5-5.1); Protein, Total 8.4 g/dL (6.4-8.2); Troponin High Sensitivity 19.8 pg/mL (<58.9)
--- NOTE | 2024-11-11 18:35 | RAD REPORT ---
EXAM: Chest Single View HISTORY: DYSPNEA COMPARISON: 09/07/2024. FINDINGS: LUNGS/PLEURA: Vascular engorgement with interstitial prominence bilaterally. MEDIASTINUM: The mediastinal silhouette is within normal limits. CARDIAC: Moderate cardiomegaly. UPPER ABDOMEN: No significant abnormality. BONES: Sternotomy. No acute abnormality. LINES/TUBES/OTHER: N/A IMPRESSION: Pulmonary edema.
[2024-11-11] MEDS ORDERED: FUROSEMIDE 40 MG/4 ML VIAL ONE (18:44)
--- NOTE | 2024-11-11 18:55 | EDPHYS ---
Physician Documentation [facility] Name: Matthew Leyva Age: 64 yrs Sex: Male : 1960 Arrival Date: 11/11/2024 Time: 17:38 Bed 4 Private MD: ED Physician Steven Luu HPI: 11/11 17:48 This 64 yrs old Male presents to ER via Wheelchair with complaints of Shortness Of rn Breath. 17:48 The patient has shortness of breath at rest, with light activity. Onset: The rn symptoms/episode began/occurred 2 hour(s) ago. The patient's shortness of breath is aggravated by coughing, exertion, light activity. Severity of symptoms: At their worst the symptoms were moderate in the emergency department the symptoms are unchanged. The patient has experienced similar episodes in the past. Patient reports onset of shortness of breath about 2 hours ago. No chest pain. No recent illness. Does have nonproductive cough. No fever or chills. No trauma. No abdominal pain.. Historical: - Allergies: 18:00 unknown antibiotic; aa5 - PMHx: 18:00 Diabetes - NIDDM; Hypertension; aa5 - Immunization history:: Adult Immunizations up to date. - Infectious Disease History:: Denies. - Family history:: not pertinent. - Hospitalizations: : No recent hospitalization is reported. - Social history:: Smoking status: unknown. ROS: 17:48 Constitutional: Negative for fever, chills, and weight loss, Cardiovascular: Negative rn for chest pain, palpitations, and edema, Respiratory: Positive for cough and shortness of breath Abdomen/GI: Negative for abdominal pain, nausea, vomiting, diarrhea, and constipation, MS/Extremity: Negative for injury and deformity, Neuro: Negative for headache, weakness, numbness, tingling, and seizure, Exam: 17:48 Constitutional: This is a well developed, well nourished patient who is awake, alert, rn sitting in wheelchair, appears to have labored breathing and uncomfortable Cardiovascular: Tachycardic, irregular Respiratory: moderate tachypnea, faint wheezing Abdomen/GI: Soft, non-tender MS/ Extremity: Pulses equal, no cyanosis. No edema Neuro: Awake and alert, GCS 15 Vital Signs: 17:40 Pulse 101; Resp 30; Pulse Ox 82% on R/A; hb 18:03 BP 166 / 75; Pulse 98; Resp 26; Pulse Ox 97% on BiPAP; FiO2 40 %; Weight 83.01 kg; ss Height 5 ft. 7 in. ; 18:10 Temp 98(O); aa5 18:30 BP 168 / 80; Pulse 95; Resp 25 S; Pulse Ox 98% on BiPAP; aa5 19:16 BP 177 / 83; Pulse 93; Resp 21; Temp 98; Pulse Ox 97% on BiPAP; FiO2 40 %; Pain 0/10; bm8 21:40 BP 174 / 75; Pulse 102; Resp 20; Temp 98; Pulse Ox 92% on 4 lpm NC; Pain 0/10; bm8 18:03 Body Mass Index 28.66 (83.01 kg, 170.18 cm) ss 19:16 Pain Scale: Adult bm8 21:40 Pain Scale: Adult bm8 Natalia Coma Score: 19:16 Eye Response: spontaneous(4). Motor Response: obeys commands(6). Verbal Response: bm8 oriented(5). Total: 15. 21:40 Eye Response: spontaneous(4). Motor Response: obeys commands(6). Verbal Response: bm8 oriented(5). Total: 15. MDM: 17:42 Medical Screening Exam initiated rn 18:53 Differential diagnosis: CHF exacerbation, Chronic Obstructive Pulmonary Disease rn Myocardial Infarction pneumonia, Pneumothorax pulmonary edema. Data reviewed: vital signs, nurses notes, lab test result(s), EKG, radiologic studies, plain films, and as a result, I will admit patient. Consideration of Admission/Observation Patient was admitted/placed on observation. Escalation of care including admission/observation considered. Independent interpretation of the following test(s) in the Emergency Department X-Ray: My interpretation is Chest x-ray images positive for pulmonary edema per my interpretation. Counseling: I had a detailed discussion with the patient and/or guardian regarding the historical points, exam findings, and any diagnostic results supporting the discharge/admit diagnosis, the presence of at least one elevated blood pressure reading (>120/80) during this emergency department visit, lab results, the need for further work-up and treatment in the hospital. Response to treatment: the patient's symptoms have mildly improved after treatment, and as a result, I will admit patient. 11/11 17:46 Order name: Blood Culture Adult (2) rn 11/11 17:46 Order name: CBC with Diff; Complete Time: 18:19 rn 11/11 17:46 Order name: CMP; Complete Time: 18:36 rn 11/11 17:46 Order name: Lactate w/ 2H reflex if indic.; Complete Time: 20:14 rn 11/11 17:46 Order name: Protime (+inr); Complete Time: 18:19 rn 11/11 17:46 Order name: Ptt, Activated; Complete Time: 18:19 rn 11/11 17:46 Order name: BNP; Complete Time: 18:36 rn 11/11 17:46 Order name: Troponin High Sensitivity; Complete Time: 18:36 rn 11/11 19:27 Order name: Basic Metabolic Panel EDMS 11/11 19:27 Order name: Basic Metabolic Panel EDMS 11/11 19:27 Order name: CBC with Automated Diff EDMS 11/11 19:27 Order name: CBC with Automated Diff EDMS 11/11 17:46 Order name: Chest Single View XRAY; Complete Time: 18:36 rn 11/11 17:46 Order name: Cardiac monitoring; Complete Time: 18:02 rn 11/11 17:46 Order name: EKG - Nurse/Tech; Complete Time: 18:02 rn 11/11 17:46 Order name: IV Saline Lock - Large Bore; Complete Time: 18:09 rn 11/11 17:46 Order name: Labs collected and sent; Complete Time: 18:42 rn 11/11 17:46 Order name: O2 Per Protocol; Complete Time: 18:03 rn 11/11 17:46 Order name: O2 Sat Monitoring; Complete Time: 18:03 rn 11/11 17:46 Order name: Vital Signs; Complete Time: 18:03 rn Administered Medications: 18:15 Drug: MethylPrednisoLONE IVP 125 mg IVP once Route: IVP; Site: right antecubital; aa5 18:30 Follow up: Response: No adverse reaction aa5 18:20 Drug: Levalbuterol Inhalation 1.25 mg Inhalation once Route: Inhalation; aa5 19:19 Follow up: Response: No adverse reaction bm8 18:20 Drug: Levalbuterol Inhalation 1.25 mg Inhalation once Route: Inhalation; aa5 19:19 Follow up: Response: No adverse reaction bm8 18:20 Drug: Ativan IVP 0.5 mg IVP once Route: IVP; Site: right antecubital; aa5 18:30 Follow up: Response: No adverse reaction; Anxiety decreased aa5 19:04 Drug: Furosemide IVP 40 mg IVP once; give over 2 minutes Route: IVP; Site: left bm8 antecubital; 19:19 Follow up: Response: No adverse reaction bm8 Disposition: 18:53 Critical Care:. rn Disposition Summary: 11/11/24 18:54 Hospitalization Ordered Notes: Hospitalization Status: Inpatient Admission rn Provider: Connor Brown rn Condition: Stable rn Problem: new rn Symptoms: have improved rn Bed/Room Type: Standard rn Location: [facility] ER HOLD(11/11/24 22:25) Room Assignment: ERHOLD-(11/11/24 22:25) cg Diagnosis - Acute pulmonary edema rn - Hypoxemia rn Forms: - Medication Reconciliation Form rn - SBAR form rn - Leadership Thank You Letter retort kiln burner time excluding procedures: 18:53 Critical care time: Bedside Care: 30 minutes, Consultation: 5 minutes. Total time: 35 rn minutes Signatures: Dispatcher [employer] EDMS Steven Luu MD MD rn Calderon, Audri, RN RN [email or web address] Odette Salazar RN RN cg Khadar Hawkins MD MD rt Augie Short RN RN [id number] Corrections: (The following items were deleted from the chart) 17:47 17:46 BLOOD CULTURE*+BA.LAB.BRZ ordered. EDMS EDMS 17:47 17:46 CBC+H.LAB.BRZ ordered. EDMS EDMS 17:47 17:46 COMPREHENSIVE METABOLIC PANEL+C.LAB.BRZ ordered. EDMS EDMS 17:47 17:46 LACTATE+C.LAB.BRZ ordered. EDMS EDMS 17:47 17:46 PROTIME (+INR)+COAG.LAB.BRZ ordered. EDMS EDMS 17:47 17:46 PTT, ACTIVATED+COAG.LAB.BRZ ordered. EDMS EDMS 17:47 17:46 PROBNP+C.LAB.BRZ ordered. EDMS EDMS 17:47 17:47 Chest Single View+RAD.RAD.BRZ ordered. EDMS EDMS 17:47 17:47 Troponin High Sensitivity+C.LAB.BRZ ordered. EDMS EDMS 19:14 17:46 Accucheck ordered. rn aa5 : 18:54 Telemetry/MedSurg (Inpatient) rn cg 18:54 rn cg
--- NOTE | 2024-11-11 18:55 | ER ---
Nurse's Notes [facility] Name: Matthew Leyva Age: 64 yrs Sex: Male : 1960 Arrival Date: 11/11/2024 Time: 17:38 Bed 4 Private MD: Diagnosis: Acute pulmonary edema;Hypoxemia Presentation: 11/11 17:40 Chief complaint: Patient states: SOB that began today. Coronavirus screen: Client hb denies travel out of the [place] in the last 14 days. Ebola Screen: Patient denies exposure to infectious person. Patient denies travel to an Ebola-affected area in the 21 days before illness onset. Initial Sepsis Screen: Does the patient meet any 2 criteria? No. Patient's initial sepsis screen is negative. Does the patient have a suspected source of infection? No. Patient's initial sepsis screen is negative. Risk Assessment: Do you want to hurt yourself or someone else? Patient reports no desire to harm self or others. Onset of symptoms was November 11, 2024. 17:40 Acuity: GIANLUCA 1 hb 17:40 Method Of Arrival: Wheelchair hb Historical: - Allergies: 18:00 unknown antibiotic; aa5 - PMHx: 18:00 Diabetes - NIDDM; Hypertension; aa5 - Immunization history:: Adult Immunizations up to date. - Infectious Disease History:: Denies. - Family history:: not pertinent. - Hospitalizations: : No recent hospitalization is reported. - Social history:: Smoking status: unknown. Screenin:16 [facility] ED Fall Risk Assessment (Adult) History of falling in the last 3 months, bm8 including since admission No falls in past 3 months (0 pts) Confusion or Disorientation No (0 pts) Intoxicated or Sedated No (0 pts) Impaired Gait No (0 pts) Mobility Assist Device Used No (0 pt) Altered Elimination No (0 pt) Score/Fall Risk Level 0 - 2 = Low Risk Oriented to surroundings, Maintained a safe environment, Educated pt \\T\\ family on fall prevention, incl call for assistance when getting out of bed, Provided non-skid footwear, Hourly rounding (assess needs \\T\\ fall precautionary measures) done, Used ambulatory aids as needed (educated on \\T\\ assisted with), Used gait belt as appropriate. Abuse screen: Denies threats or abuse. Nutritional screening: No deficits noted. Tuberculosis screening: No symptoms or risk factors identified. Assessment: 18:10 General: Appears distressed, uncomfortable, Behavior is agitated, anxious. Pain: Denies aa5 pain. Neuro: Level of Consciousness is awake, alert, obeys commands, Oriented to person, place, time, situation, Appropriate for age. Cardiovascular: Heart tones S1 S2 present Rhythm is sinus rhythm. Respiratory: Airway is patent Respiratory effort is even, labored, Respiratory pattern is tachypnea Breath sounds are coarse bilaterally. GI: No signs and/or symptoms were reported involving the gastrointestinal system. Abdomen is round. : No signs and/or symptoms were reported regarding the genitourinary system. EENT: No signs and/or symptoms were reported regarding the EENT system. Derm: Skin is pink, warm \\T\\ dry. Musculoskeletal: Range of motion: intact in all extremities. 18:15 Reassessment: Pt requesting "for medicine to help me calm down", pt refusing neb tx aa5 until medication is administered, was notified. Pt holding Bi-PAP mask to his face, removed straps, states "it's making me claustrophobic". Explained need for Bi-PAP to pt, pt verbalizes understanding. . 18:30 Reassessment: Pt more calm now, states feeling better, tolerating Bi-PAP well. . aa5 General: Appears comfortable, Behavior is calm, cooperative. Respiratory: Airway is patent Respiratory effort is even, labored, Respiratory pattern is tachypnea. Derm: Skin is pink, warm \\T\\ dry. 19:16 General: Appears in no apparent distress. comfortable, Behavior is calm, cooperative, bm8 appropriate for age. Pain: Denies pain. Neuro: No deficits noted. Level of Consciousness is awake, alert, obeys commands, Oriented to person, place, time, situation, Appropriate for age. Cardiovascular: Denies chest pain, Heart tones S1 S2 present Capillary refill < 3 seconds in bilateral fingers Rhythm is sinus rhythm. Respiratory: Airway is patent Trachea midline Respiratory effort is even, unlabored, Respiratory pattern is regular, symmetrical, pt on Bipap Breath sounds are diminished bilaterally. GI: No signs and/or symptoms were reported involving the gastrointestinal system. : No signs and/or symptoms were reported regarding the genitourinary system. EENT: No signs and/or symptoms were reported regarding the EENT system. Derm: No signs and/or symptoms reported regarding the dermatologic system. Musculoskeletal: No signs and/or symptoms reported regarding the musculoskeletal system. 21:40 Reassessment: Patient appears in no apparent distress at this time. Patient and/or bm8 family updated on plan of care and expected duration. Pain level reassessed. Patient is alert, oriented x 3, equal unlabored respirations, skin warm/dry/pink. pt off bipap and switched to NC Patient denies pain at this time. Patient states feeling better. Patient states symptoms have improved. Vital Signs: 17:40 Pulse 101; Resp 30; Pulse Ox 82% on R/A; hb 18:03 BP 166 / 75; Pulse 98; Resp 26; Pulse Ox 97% on BiPAP; FiO2 40 %; Weight 83.01 kg; ss Height 5 ft. 7 in. ; 18:10 Temp 98(O); aa5 18:30 BP 168 / 80; Pulse 95; Resp 25 S; Pulse Ox 98% on BiPAP; aa5 19:16 BP 177 / 83; Pulse 93; Resp 21; Temp 98; Pulse Ox 97% on BiPAP; FiO2 40 %; Pain 0/10; bm8 21:40 BP 174 / 75; Pulse 102; Resp 20; Temp 98; Pulse Ox 92% on 4 lpm NC; Pain 0/10; bm8 18:03 Body Mass Index 28.66 (83.01 kg, 170.18 cm) ss 19:16 Pain Scale: Adult bm8 21:40 Pain Scale: Adult bm8 Prescott Coma Score: 19:16 Eye Response: spontaneous(4). Motor Response: obeys commands(6). Verbal Response: bm8 oriented(5). Total: 15. 21:40 Eye Response: spontaneous(4). Motor Response: obeys commands(6). Verbal Response: bm8 oriented(5). Total: 15. ED Course: 17:39 Patient arrived in ED. im 17:40 Triage completed. hb 17:42 Steven Luu MD is Attending Physician. rn 17:53 Inserted saline lock: 20 gauge in right antecubital area, using aseptic technique. ap3 Blood collected. Flushed with 10 mL NS. 17:57 Billie Saavedra, SHARIF is Primary Nurse. aa5 18:03 Arm band placed on right wrist. ss 18:10 Patient has correct armband on for positive identification. Bed in low position. Call aa5 light in reach. Side rails up X 1. Client placed on continuous cardiac and pulse oximetry monitoring. NIBP monitoring applied. monitoring tech on. Pulse ox on. NIBP on. 18:22 Chest Single View XRAY In Process Unspecified. EDMS 18:25 First set of blood cultures drawn by me. aa5 18:30 Inserted saline lock: 20 gauge in left antecubital area, using aseptic technique. aa5 18:40 Second set of blood cultures drawn by me. aa5 18:54 Connor Brown MD is Hospitalizing Provider. rn 19:00 Report given to SHARIF Ghosh. aa5 19:16 Patient has correct armband on for positive identification. Bed in low position. Call bm8 light in reach. Side rails up X 1. Client placed on continuous cardiac and pulse oximetry monitoring. NIBP monitoring applied. monitoring tech on. Pulse ox on. NIBP on. Door closed. Noise minimized. Warm blanket given. Pillow given. Verbal reassurance given. Head of bed elevated. 19:21 No provider procedures requiring assistance completed. bm8 19:21 Provided Education on: need for admission. bm8 21:40 Patient admitted, IV remains in place. bm8 Administered Medications: 18:15 Drug: MethylPrednisoLONE IVP 125 mg IVP once Route: IVP; Site: right antecubital; aa5 18:30 Follow up: Response: No adverse reaction aa5 18:20 Drug: Levalbuterol Inhalation 1.25 mg Inhalation once Route: Inhalation; aa5 19:19 Follow up: Response: No adverse reaction bm8 18:20 Drug: Levalbuterol Inhalation 1.25 mg Inhalation once Route: Inhalation; aa5 19:19 Follow up: Response: No adverse reaction bm8 18:20 Drug: Ativan IVP 0.5 mg IVP once Route: IVP; Site: right antecubital; aa5 18:30 Follow up: Response: No adverse reaction; Anxiety decreased aa5 19:04 Drug: Furosemide IVP 40 mg IVP once; give over 2 minutes Route: IVP; Site: left bm8 antecubital; 19:19 Follow up: Response: No adverse reaction bm8 Medication: 19:16 VIS not applicable for this client. bm8 Outcome: 18:54 Decision to Hospitalize by Provider. rn 21:40 Admitted to ER Hold. Please see [facility] for further documentation. bm8 21:40 Condition: stable 21:40 Instructed on follow up and referral plans. the need for admit, Demonstrated understanding of instructions, follow-up care, medications, 11/12 07:48 Patient left the ED. ld1 Signatures: Dispatcher [employer] EDMS Steven Luu MD MD rn Calderon, Audri, RN RN aa5 Christi Awan RN RN ss Melly Traylor RN RN Joanne Pelayo RN RN ap3 Geno Lu RN RN ld1 Tabitha Stewart Brad, RN RN bm8
[2024-11-11] MEDS ORDERED: ALBUTEROL 2.5 MG/3 ML NEB SOL NEB PRN (19:22)
--- NOTE | 2024-11-11 19:30 | P.HP ---
Certification for Inpatient With expected LOS: >2 Midnights Practitioner: I am a practitioner with admitting privileges, knowledge of patient current condition, hospital course, and medical plan of care. 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 has some swelling of his lower extremity patient is compliant with his medication denies any dietary indiscretion occultly speaking in full sentences sitting upright Allergies No Known Allergies Allergy (Verified 09/05/24 12:36) Home Medications: Metformin HCl [Metformin HCl ER] 1,000 mg PO BID 09/18/16 Simvastatin 40 mg PO DAILY 09/18/16 Amlodipine [Norvasc*] 5 mg PO DAILY 09/07/24 Bupropion HCl [Wellbutrin Sr] 150 mg PO DAILY 09/07/24 Clopidogrel Bisulfate [Clopidogrel] 75 mg PO DAILY 09/07/24 Gabapentin [Neurontin*] 100 mg PO DAILY 09/07/24 Hydralazine [Apresoline*] 75 mg PO BID 09/07/24 Hydrocodone Bit/Acetaminophen [Hydrocodon-Acetaminophn 10-325] 10 mg PO Q4HR PRN 09/07/24 lisinopriL [Lisinopril] 20 mg PO DAILY 09/07/24 Aspirin [Aspirin EC 81 MG] 81 mg PO DAILY 30 Days #30 tab 09/08/24 Carvedilol [Coreg] 12.5 mg PO BID 30 Days #60 tab 09/08/24 Clopidogrel Bisulfate [Plavix*] 75 mg PO DAILY 09/08/24 Clopidogrel Bisulfate [Plavix] 75 mg PO DAILY 30 Days #30 tab 09/08/24 Furosemide [Lasix] 40 mg PO DAILY 30 Days #30 tab 09/08/24 Potassium Oral Tab [Klor-Con 10 mEq Tab*] 20 meq PO DAILY 30 Days #30 tab 09/08/24 - Past Medical/Surgical History Diabetic: Yes -: HTN -: Diabetes -: appendectomy -: quadruple bypass -: stent left leg -: 3 vessel CABG -: Left pinky toe amputation Psychosocial/ Personal History: Lives at home alone, recently - Family History Mother -: Stroke Notes: of coronary artery disease - Social History Alcohol use: Yes CD- Drugs: No Caffeine use: No Review of Systems 10-point ROS is otherwise unremarkable Respiratory: Shortness of Breath Physical Examination - Vital Signs Temperature: 98 F Blood Pressure: 166/75 Pulse: 93 Respirations: 26 Pulse Ox (%): 97 - Physical Exam General: Alert, Moderate distress Respiratory: Crackles/rales Cardiovascular: Regular rate/rhythm, Edema (Plus edema) Gastrointestinal: Normal bowel sounds, Soft and benign, Non-distended Musculoskeletal: No clubbing, No swelling - Studies Laboratory Data (last 24 hrs) 11/11/24 11/11/24 11/11/24 17:52 17:52 17:52 WBC 10.90 Hgb 14.2 Hct 42.2 Plt Count 256 PT 10.9 INR 0.95 APTT 28.9 Sodium 130 L Potassium 4.4 BUN 12 Creatinine 0.85 Glucose 186 H Total Bilirubin 0.8 AST 13 L ALT 18 Alkaline Phosphatase 102 Assessment and Plan - Problems (Diagnosis) (1) Congestive heart failure (CHF) Current Visit: Yes Status: Acute Plan: Patient is 64 years of age admitted with acute onset of dyspnea possible exacerbation of underlying CHF chest x-ray shows cardiomegaly status post CABG his BNP is over 2000 mildly hyponatremic blood pressure is mildly elevated we will plan to admit to the hospital aggressive diuresis fluid restriction continue to monitor not sure about his list of his medication patient states that he was compliant with all his medication including diuretic Qualifiers: Heart failure chronicity: unspecified - Advance Directives Does patient have a Living Will: No Does patient have a Durable POA for Healthcare: No
[2024-11-11 21:56] VITALS: BMI 27.8
[2024-11-12] MEDS: ESZOPICLONE 1 MG TAB PO PRN (02:30)
[2024-11-12 06:22] LABS: Absolute Lymphocytes (CBC) 0.2 K/uL (0.7-4.9); Absolute Monocytes 0.1 K/uL (0.1-1.3); Absolute Neutrophil 6.5 K/uL (1.8-8.0); Basophils % 0.2 % (0-1.3); Hematocrit 38.3 % (39.6-49.0); Hemoglobin 12.9 g/dL (13.6-17.9); Lymphocytes % 2.3 % (15.3-44.8); MCH 30.8 pg (27.0-35.0); MCHC 33.6 g/dL (32.0-36.0); MCV 91.8 fL (80-100); MPV 8.2 fL (7.6-11.3); Monocytes % 1.5 % (3.3-12.3); Platelets 261 thou/uL (152-406); RBC Red Blood Cell Count 4.18 M/uL (4.33-5.43); Red Cell Distribution Width 15.1 % (12.1-15.2)
[2024-11-12 06:24] LABS: Anion Gap 8.2 mEq/L (5.0-15.0); Potassium 4.2 mEq/L (3.5-5.1)
[2024-11-12] MEDS ORDERED: FUROSEMIDE 40 MG/4 ML VIAL IV SCH (09:00)
[2024-11-12 09:12] LABS: Blood Morphology Comment NOT SEEN (NOT SEEN); Platelet Estimate ADEQ; Platelets, Giant RARE; White Blood Cell Scan OK (OK)
[2024-11-12 14:21] VITALS: TEMP 98
[2024-11-12 14:26] VITALS: BP 174/75; O2SAT 92
--- NOTE | 2024-11-14 12:05 | EKG ---
Test Date: 2024-11-11 Test Time: 17:59:19 Heating Repair Technician: EVELYN MEASUREMENT RESULTS: Intervals: Rate: 94 CT: 200 QRSD: 94 QT: 364 QTc: 455 [place]: P: 83 CT: 200 QRS: 86 T: -90 INTERPRETIVE STATEMENTS: Normal sinus rhythm Inferior infarct, age undetermined Cannot rule out Anterior infarct, age undetermined ST & T wave abnormality, consider lateral ischemia Abnormal ECG Compared to ECG 09/07/2024 08:20:10 No significant changes Electronically Signed On 11-14-24 12:04:31 CAT SCAN TECH by Varghese Yan
== END 2024-11-12 07:48 | disposition left against medical advice (07) | DRG 292 ==
LOC: ER 17:38 → ERHOLD 19:22
PROVIDERS: ADMIT Internal Medicine Sleep Medicine; ATTEND Hospitalist
PROC: 5A09357 Assistance with Respiratory Ventilation, Less than 24 Consecutive Hours, Continuous Positive Airway Pressure (ICD-10-PCS; principal; 2024-11-11)
DX: I11.0 Hypertensive heart disease with heart failure (principal); E87.1 Hypo-osmolality and hyponatremia; I50.9 Heart failure, unspecified; E11.9 Type 2 diabetes mellitus without complications; Z60.2 Problems related to living alone; Z95.1 Presence of aortocoronary bypass graft; Z79.82 Long term (current) use of aspirin; Z79.84 Long term (current) use of oral hypoglycemic drugs; Z53.29 Procedure and treatment not carried out because of patient's decision for other reasons; Z79.02 Long term (current) use of antithrombotics/antiplatelets; Z90.49 Acquired absence of other specified parts of digestive tract; Z79.899 Other long term (current) drug therapy; Z89.422 Acquired absence of other left toe(s)
CPT/HCPCS: 36415; 71045; 80048; 80053; 83605; 83880; 84484; 85025; 85610; 85730; 87040; 93005; 94660; 99285; J1940; J2919; J7614